=== PATIENT | male | born 1990 | race Caucasian/White ===

== ENCOUNTER 2018-04-20 12:34 | Emergency (ER) | payer OTHER ==
[~2018-04-20] VITALS: Ht 182.9 cm; Wt 110.2 kg
[2018-04-20 12:38] VITALS: BP 143/84; Ht 182.9 cm; Wt 110.2 kg
== END 2018-04-20 14:14 | disposition home or self-care (01) ==
LOC: ED 12:34
DX: H10.212 Acute toxic conjunctivitis, left eye (principal)
CPT/HCPCS: J7030; V2632